=== PATIENT | female | born 1990 | race African-American/Black ===

== ENCOUNTER 2024-11-25 20:05 | Observation (INO) | payer OTHER ==
[2024-11-25] MEDS ORDERED: ACETAMINOPHEN INJECTION 100 ML ONE (21:51)
[2024-11-25] MEDS ORDERED: ONDANSETRON 4 MG/2 ML VIAL ONE (21:52)
[2024-11-25] MEDS: ACETAMINOPHEN 1000 MG/100 ML BAG IVPB ONE (22:13)
[2024-11-25] MEDS: ONDANSETRON 4 MG/2 ML VIAL IVPUSH ONE (22:13)
[2024-11-25] MEDS: SODIUM CHLORIDE 0.9% 500 ML INFUS.BAG IV ONE (22:13)
[2024-11-25 22:21] LABS: BASO % 0.1 % (0-2.0); HEMATOCRIT 31.4 % (32.4-45.2); HEMOGLOBIN 9.8 GM/dL (10.7-15.3); LYMPH % 6.3 % (8-40); MCH 20.6 pg (25.7-33.7); MCHC 31.4 g/dl (32.0-36.0); MEAN CELL VOLUME 65.6 fl (80-96); MEAN PLT VOLUME 9.5 fl (7.5-11.1); MONO % 3.6 % (3.8-10.2); PLATELET COUNT 263 10^3/uL (134-434); RBC 4.78 M/mm3 (3.60-5.2); RDW 19.2 % (11.6-15.6); WHITE BLOOD COUNT 11.7 K/mm3 (4.0-10.0)
[2024-11-25 22:23] LABS: EPI CELLS >36 /uL (0-25.1); HYALINE CASTS 2 /uL (0-3.1); PH,URINE >= 9.0 (5.0-8.0); URINE APPEARANCE CLOUDY; URINE BACTERIA 1878 /uL (0-1359); URINE BILIRUBIN NEGATIVE (NEGATIVE); URINE COLOR YELLOW; URINE GLUCOSE (UA) NEGATIVE (NEGATIVE); URINE KETONE 1+ (NEGATIVE); URINE LEUK ESTERASE 1+ (NEGATIVE); URINE NITRITE NEGATIVE (NEGATIVE); URINE PROTEIN TRACE (NEGATIVE); URINE RBC 13 /uL (0-23.9); URINE WBC 47 /uL (0-25.8)
[2024-11-25 22:55] LABS: POTASSIUM 3.9 mmol/L (3.5-5.1)
[2024-11-25 22:57] LABS: ALBUMIN 3.3 g/dl (3.4-5.0); BLOOD UREA NITROGEN 11.8 mg/dL (7-18)
[2024-11-25 23:00] LABS: CREATININE 0.7 mg/dL (0.55-1.3)
[2024-11-25 23:02] LABS: BILIRUBIN,TOTAL 0.6 mg/dL (0.2-1)
[2024-11-25 23:15] LABS: ANISOCYTOSIS 2+; MACROCYTOSIS 0; OVALOCYTE 1+
[2024-11-26] MEDS ORDERED: AZITHROMYCIN 500 MG TABLET ONE (00:07)
[2024-11-26] MEDS ORDERED: CEFTRIAXONE 1 G/50 ML PREMIX 50 ML IVPB ONE (00:07)
[2024-11-26] MEDS: CEFTRIAXONE 1,000 MG in DEXTROSE 5%-WATER - 50 ML IVPB ONE (00:13)
[2024-11-26] MEDS: AZITHROMYCIN 500 MG TABLET PO ONE (00:13)
[2024-11-26] MEDS ORDERED: MORPHINE SULFATE 2 MG/ML SYRINGE ONE (03:02)
[2024-11-26] MEDS: morphine CARPU-JECT 2 MG/1 ML DISP.SYRIN IVPUSH ONE (03:15)
[2024-11-26] MEDS ORDERED: ACETAMINOPHEN INJECTION 100 ML ONE (06:17)
[2024-11-26] MEDS ORDERED: ONDANSETRON 4 MG/2 ML VIAL ONE (06:17)
[2024-11-26] MEDS: ACETAMINOPHEN 1000 MG/100 ML BAG IVPB ONE (06:25)
[2024-11-26] MEDS: ONDANSETRON 4 MG/2 ML VIAL IVPUSH ONE (06:25)
[2024-11-26] MEDS ORDERED: ONDANSETRON 4 MG/2 ML VIAL IVPUSH PRN (12:15)
[2024-11-26 13:41] VITALS: BP 111/64; PULSE 78; RESP 18; TEMP 99; BMI 21.3
[2024-11-26] MEDS: ACETAMINOPHEN 1000 MG/100 ML BAG IVPB PRN (14:12)
[2024-11-26] MEDS: PRENATAL VITAMINS W/ FOLIC ACID TABLET (FP) PO ONE (15:55)
[2024-11-27] MEDS ORDERED: PRENATAL VITAMINS W/ FOLIC ACID TABLET (FP) PO SCH (10:00)
[2024-11-27] MEDS ORDERED: CEFTRIAXONE 1 G/50 ML PREMIX 50 ML IVPB SCH (10:00)
[2024-11-27] MEDS ORDERED: ASCORBIC ACID 500 MG TABLET (FP) PO SCH ×2 (10:00)
[2024-11-27] MEDS ORDERED: FERROUS SO4 325 MG TABLET (FP) PO SCH (10:00)
[2024-11-28] MEDS ORDERED: FERROUS SO4 325 MG TABLET (FP) PO SCH (10:00)
== END 2024-11-26 13:30 | disposition home or self-care (01) ==
LOC: JER 20:05 → UNDOADMOB 11-26 06:09 → JERBED 11-26 06:09 → INTOOBSV 11-26 06:09 → JERBED 11-26 08:15 → J7W 11-26 11:00 → JERBED 11-26 11:00 → J7W 11-26 11:00
PROVIDERS: ADMIT Hospitalist; ATTEND Hospitalist
PROC: 3E03329 Introduction of Other Anti-infective into Peripheral Vein, Percutaneous Approach (ICD-10-PCS; principal; 2024-11-26)
PROC: 3E033GC Introduction of Other Therapeutic Substance into Peripheral Vein, Percutaneous Approach (ICD-10-PCS; 2024-11-26)
PROC: 3E033NZ Introduction of Analgesics, Hypnotics, Sedatives into Peripheral Vein, Percutaneous Approach (ICD-10-PCS; 2024-11-26)
PROC: 3E0337Z Introduction of Electrolytic and Water Balance Substance into Peripheral Vein, Percutaneous Approach (ICD-10-PCS; 2024-11-26)
DX: O26.891 Other specified pregnancy related conditions, first trimester (principal); O99.011 Anemia complicating pregnancy, first trimester; R10.30 Lower abdominal pain, unspecified; Z3A.13 13 weeks gestation of pregnancy
CPT/HCPCS: 36415; 76817-TC; 80053; 81003; 84702; 85025; 87070; 87086; 87205; 87491; 87591; 87661; 93005; 93010; 96365; 96375; 96376; 99285-25; G0378; J0131

== ENCOUNTER 2025-02-01 03:35 | Observation (INO) | payer OTHER ==
[2025-02-01] MEDS: LACTATED RINGERS SOLUTION 500 ML IV ONE ×2 (05:05→21:05)
[2025-02-01 05:31] LABS: URINE APPEARANCE CLEAR; URINE BILIRUBIN NEGATIVE (NEGATIVE); URINE COLOR YELLOW; URINE GLUCOSE (UA) NEGATIVE (NEGATIVE); URINE KETONE TRACE (NEGATIVE); URINE LEUK ESTERASE NEGATIVE (NEGATIVE); URINE NITRITE NEGATIVE (NEGATIVE); URINE PROTEIN NEGATIVE (NEGATIVE)
[2025-02-01] MEDS: LACTATED RINGERS SOLUTION 500 ML IV SCH (05:35)
[2025-02-01 05:49] LABS: POTASSIUM 3.8 mmol/L (3.5-5.1)
[2025-02-01 05:52] LABS: ALBUMIN 2.8 g/dl (3.4-5.0)
[2025-02-01 05:53] LABS: BLOOD UREA NITROGEN 9.7 mg/dL (7-18)
[2025-02-01 05:56] LABS: CREATININE 0.7 mg/dL (0.55-1.3)
[2025-02-01 05:57] LABS: BILIRUBIN,TOTAL 0.5 mg/dL (0.2-1); TOT PROT 6.3 g/dl (6.4-8.2)
[2025-02-01 06:32] LABS: ABSOLUTE IMMATURE GRANULOCYTES 0.05 x10^3/uL (0.0-0.031); BASOPHILS # 0.02 x10^3/uL (0.01-0.08); EOSINOPHIL % 0.3 % (0.7-5.8); EOSINOPHILS # 0.03 x10^3/uL (0.04-0.36); HEMATOCRIT 24.3 % (34.1-44.9); HEMOGLOBIN 7.2 g/dL (11.2-15.7); MCHC 29.6 g/dl (32.2-35.5); MEAN CELL VOLUME 66.9 fl (79.4-94.8); MONOCYTE # 0.49 x10^3/uL (0.24-0.86); MONOCYTE % 4.8 % (4.7-12.5); PLATELET COUNT 212 x10^3/uL (182-369); RDW 17.2 % (12.1-16.8)
[2025-02-01] MEDS ORDERED: FAMOTIDINE 20 MG/50 ML IVPB 20 MG/50 ML MG IVPB ONE (07:14)
[2025-02-01] MEDS: FAMOTIDINE 20 MG/50 ML IVPB 20 MG/50 ML MG IVPB ONE (07:20)
[2025-02-01] MEDS: ACETAMINOPHEN 1000 MG/100 ML BAG IVPB ONE (10:35)
[2025-02-01] MEDS ORDERED: ACETAMINOPHEN INJECTION 100 ML ONE (10:39)
[2025-02-01] MEDS: IRON SUCROSE INJECTION 200 MG in SODIUM CHLORIDE 100 ML IVPB ONE (11:15)
[2025-02-01 19:45] VITALS: RESP 17
[2025-02-01 21:28] VITALS: BMI 26.2
[2025-02-01] MEDS ORDERED: ACETAMINOPHEN 500 MG TABLET (FP) ONE (21:29)
[2025-02-01] MEDS: ACETAMINOPHEN 500 MG TABLET (FP) PO ONE (21:33)
[2025-02-01 22:18] VITALS: BP 107/46; PULSE 86; TEMP 99.2
== END 2025-02-01 23:37 | disposition home or self-care (01) ==
LOC: JDEL 03:35 → JLDR 20:50
PROVIDERS: ADMIT Specialist; ATTEND Allergy & Immunology
PROC: 3E033GC Introduction of Other Therapeutic Substance into Peripheral Vein, Percutaneous Approach (ICD-10-PCS; principal; 2025-02-01)
PROC: 3E033NZ Introduction of Analgesics, Hypnotics, Sedatives into Peripheral Vein, Percutaneous Approach (ICD-10-PCS; 2025-02-01)
PROC: 3E0337Z Introduction of Electrolytic and Water Balance Substance into Peripheral Vein, Percutaneous Approach (ICD-10-PCS; 2025-02-01)
DX: O26.892 Other specified pregnancy related conditions, second trimester (principal); Z3A.22 22 weeks gestation of pregnancy; R10.9 Unspecified abdominal pain
CPT/HCPCS: 36415; 59025; 72195-TC; 76705-TC; 76815-TC; 76817-TC; 76856-TC; 80053; 81003; 85025; 87086; 96361; 96365; 96367; 96375; G0378; J0131; J1756

== ENCOUNTER 2025-05-11 13:10 | Inpatient (IN) | payer OTHER ==
[2025-05-11] MEDS: ELECTROLYTE-148 SOLN 1,000 ML IV SCH (14:00)
[2025-05-11 14:06] LABS: ABSOLUTE IMMATURE GRANULOCYTES 0.04 x10^3/uL (0.0-0.031); BASOPHILS # 0.04 x10^3/uL (0.01-0.08); EOSINOPHIL % 0.7 % (0.7-5.8); EOSINOPHILS # 0.06 x10^3/uL (0.04-0.36); MCHC 28.9 g/dl (32.2-35.5); MEAN CELL VOLUME 70.0 fl (79.4-94.8); MONOCYTE # 0.69 x10^3/uL (0.24-0.86); MONOCYTE % 8.3 % (4.7-12.5); RDW 20.1 % (12.1-16.8)
[2025-05-11 14:13] LABS: INR 1.0 (0.83-1.09); PROTHROMBIN TIME (PATIENT) 10.9 SEC (9.7-13.0)
[2025-05-11 14:16] LABS: ACTIVATED PTT 27.4 SECONDS (25.2-36.5)
[2025-05-11 14:28] LABS: CO2 19.0 mmol/L (21-32)
[2025-05-11 14:32] LABS: CREATININE 0.69 mg/dL (0.55-1.3)
[2025-05-11 14:54] LABS: GLUCOSE,RANDOM 63.0 mg/dL (74-106)
[2025-05-11] MEDS: OXYTOCIN 30 UNITS in 0.9% NS 30 UNIT/500 ML INFUS.BAG IVPB SCH (15:05)
[2025-05-11] MEDS: AMPICILLIN - 2 GM in SODIUM CHLORIDE 100 ML IVPB ONE (15:27)
[2025-05-11] MEDS ORDERED: FENTANYL/BUPIVACAINE/NS/PF - PCEA - 50 ML DISP.SYRIN EP ONE (15:52)
[2025-05-11 16:01] VITALS: BMI 26.7
[2025-05-11] MEDS ORDERED: BUPIVACAINE HCL/PF 0.25% (2.5MG/ML) 10 ML VIAL ONE (16:05)
[2025-05-11] MEDS: FENTANYL/BUPIVACAINE/NS/PF - PCEA - 50 ML DISP.SYRIN EP SCH (16:35)
[2025-05-11] MEDS ORDERED: NALOXONE HCL 0.4 MG/ML VIAL IVPUSH PRN (17:59)
[2025-05-11] MEDS ORDERED: OXYTOCIN 20 UNITS in 0.9% NS 20 UNIT/1,000 ML INFUS.BAG IV ONE (18:55)
[2025-05-11] MEDS: OXYTOCIN 20 UNITS in 0.9% NS 20 UNIT/1,000 ML INFUS.BAG IV SCH (19:01)
[2025-05-11] MEDS ORDERED: BENZOCAINE 28 GM HEMORRHOIDAL OINTMENT TP PRN (19:39)
[2025-05-11] MEDS ORDERED: BENZOCAINE 20% 57 GM BOTTLE TP PRN (19:39)
[2025-05-11] MEDS ORDERED: WITCH HAZEL 50% (TUCKS) 40 PAD/JAR PAD TP PRN (19:39)
[2025-05-11] MEDS ORDERED: METHYLERGONOVINE MALEATE 0.2 MG/1 ML AMP IM PRN (19:39)
[2025-05-11] MEDS ORDERED: BISACODYL 10 MG SUPP.RECT RC PRN (19:39)
[2025-05-11] MEDS ORDERED: ACETAMINOPHEN 325 MG TABLET (FP) ONE (20:20)
[2025-05-11] MEDS: ACETAMINOPHEN 325 MG TABLET (FP) PO PRN (20:24)
[2025-05-12] MEDS: AMPICILLIN - 1 GM in SODIUM CHLORIDE 100 ML IVPB SCH (00:31)
[2025-05-12 08:11] LABS: ABSOLUTE IMMATURE GRANULOCYTES 0.04 x10^3/uL (0.0-0.031); BASOPHILS # 0.05 x10^3/uL (0.01-0.08); EOSINOPHIL % 0.6 % (0.7-5.8); EOSINOPHILS # 0.07 x10^3/uL (0.04-0.36); MCHC 29.4 g/dl (32.2-35.5); MEAN CELL VOLUME 69.6 fl (79.4-94.8); MONOCYTE # 0.76 x10^3/uL (0.24-0.86); MONOCYTE % 6.3 % (4.7-12.5); RDW 19.6 % (12.1-16.8)
[2025-05-12 09:54] VITALS: RESP 17
[2025-05-12] MEDS: IBUPROFEN 600 MG TABLET (FP) PO PRN (15:40)
[2025-05-12] MEDS ORDERED: SENNOSIDES/DOCUSATE COMBO (SENNA PLUS) TABLET (UD) PO PRN (22:00)
[2025-05-13 09:21] VITALS: BP 116/73; PULSE 63; TEMP 98.6
== END 2025-05-13 12:00 | disposition home or self-care (01) | DRG 560 ==
LOC: JLDR 13:10 → J3W 22:00
PROVIDERS: ADMIT Specialist; ATTEND Specialist
PROC: 10E0XZZ Delivery of Products of Conception, External Approach (ICD-10-PCS; principal; 2025-05-11)
DX: O80 Encounter for full-term uncomplicated delivery (principal); Z3A.37 37 weeks gestation of pregnancy; Z37.0 Single live birth
CPT/HCPCS: 36415; 59409; 80048; 85025; 85610; 85730; 86780; 86850; 86900; 86901